=== PATIENT | female | born 1960 | race Caucasian/White ===

== ENCOUNTER 2016-06-02 22:19 | Emergency (ER) | payer OTHER ==
[~2016-06-02] VITALS: Ht 160 cm; Wt 98.1 kg
[~2016-06-02 22:19] MED LIST: ALEVE220 M2 PO; BIOTIN1 MG PO; BUPROPION XL150 MG PO; DAILY VITAMIN1 EAC8 PO; FLEXERIL10 MG PO; ONE DAILY TABL1 EAC1 PO; PANTOPRAZOLE SO40 MG PO; PRISTIQ50 MG PO; RANITIDINE HCL150 MG PO; VENLAFAXINE HC150 M1 PO; VITAMIN C250 M1 PO; VITAMIN D; VITAMIN D-32000 UNI1 PO; WELLBUTRIN XL300 MG PO
[2016-06-02 23:08] LABS: HEMATOCRIT 44.2 % (36.0-46.0); MCH 28.3 PG (29.0-34.0); MCHC 31.9 G/DL (30.0-36.0); MCV 88.8 FL (83-99); MEAN PLAT.VOLUME 10.5 uM^3 (9.5-12.4); PLATELET COUNT 301 K/uL (156-360); RBC DIS.WIDTH-CV 12.1 % (11.8-14.6); RBC DIS.WIDTH-SD 39.5 % (39-53); RED BLOOD COUNT 4.98 M/uL (3.80-5.20); WHITE BLOOD COUNT 7.8 K/uL (4.1-10.2)
[2016-06-02 23:20] LABS: CHLORIDE 109 mEq/L (99-109); SODIUM 144 mEq/L (136-147)
[2016-06-02 23:22] LABS: GLUCOSE 97 mg/dL (70-99)
[2016-06-02 23:24] LABS: ANION GAP 9 MEQ/L (2-14)
[2016-06-02 23:26] LABS: GFR ESTIMATE (CALCULATED) > 59 mL/min/
[2016-06-02 23:27] LABS: UREA NITROGEN (BUN) 13 mg/dL (9-23)
[2016-06-02 23:29] LABS: TROP-I INTERPRETATION NEGATIVE; TROPONIN-I < 0.01 ng/mL (0.0-0.30)
[2016-06-03 00:44] LABS: D-DIMER ELISA 0.63 mg/L FEU (< 0.57)
[2016-06-03 00:47] VITALS: BP 123/64
== END 2016-06-03 00:49 | disposition home or self-care (01) ==
LOC: EME 22:19
DX: R00.2 Palpitations (principal); F41.9 Anxiety disorder, unspecified; R19.7 Diarrhea, unspecified
CPT/HCPCS: 71020; 80048; 84484; 85027; 85379; 93005; 99281; 99284